=== PATIENT | male | born 1955 | race African-American/Black ===

== ENCOUNTER → 2017-07-17 09:52 | Outpatient (CLI) | payer OTHER, SELFPAY ==
[2017-07-17 10:58] LABS: Amphetamine Urine VISTA NEGATIVE (<1000 ng/mL); Barbiturate Urine VISTA NEGATIVE (< 200 ng/mL); Benzodiazepine Urine VISTA NEGATIVE (< 200 ng/mL); Cocaine Urine VISTA NEGATIVE (< 300 ng/mL); Ecstacy Urine VISTA NEGATIVE (< 500 ng/mL); Methadone Urine VISTA NEGATIVE (< 300 ng/mL); PCP Urine VISTA NEGATIVE (< 25 ng/mL); THC Urine VISTA NEGATIVE (< 50 ng/mL); Vista UDS pH Range 6
== END ==
PROVIDERS: Family Provider Family Medicine; PCP Family Medicine; Visit Provider Anesthesiology Pain Medicine
DX: F11.20 Opioid dependence, uncomplicated (principal)
CPT/HCPCS: 80307

== ENCOUNTER 2017-09-09 10:00 | Outpatient (RCR) | payer OTHER, SELFPAY ==
--- NOTE | 2017-05-02 12:12 | HP.PTEVAL_ITS ---
Patient's Visit Information SHENG SHAFFER SR is a 61 year old M referred to Physical Therapy by PEDRO REYEZ with a diagnosis of LUMBAR RADICULAOPATHY , LUMBAROSACRAL RADICULOPATHY. Date of Evaluation: 05/02/17 Physical Therapist: Jakob Silva, PT, - Visit Plan Frequency: 2x /Week Duration: 6 Weeks Plan: LE FLEXABLITY ,DLS, PRE'S LE ,POSTURAL EX'S,CONDITIONING. BRACE ON ALL TIMES EXEPT SUPINE,NO BENDING/TWSITING/LIFTING - Subjective Subjective: This 61 y/o male presents to physical therapy lumbar radiculopathy for several years . Patient underwent s/p L4-5,L5--S1 fusion with rods and srews done DR Stern at [facility] Mar 20 then Mar 23 with Home PT ,BRACE LUMBAR and cane.Patient remove brace laying down biut on when moving around. No twisting/bending/lifting. Seen Dr Recently recommended PT. Prior surgery PT didnt help ,pain eipdural injection. Then MRI showed stenosis.Location inscion ,L-S regionand bilateral legs burning. Symptoms worse with walking,standing ,siting 5 min .Symptoms better with rest and MEDS. Pain affects sleeping and the morning. Bowel/bladder good. Patient pain quality of life and unable to RTW. Denies parathesia/tingling. SOCIAL: single. VOCATION: [employer] - Pain Bilateral Back Pain Intensity (Out of 10): 9 Pain Intensity Range: 10 Bilateral Lower Extremity Pain Intensity (Out of 10): 9 Pain Intensity Range: 10 - Objective POSTURE: mild foward posture ,brace on lumbar. GAIT: mild foward posture reciprocal patteen antalgic gait slow minerva with cane. PALAPTION: mild tender paraspinals,. INSCION: well approximate incsion. NEURO: denies parathesia/tingle,reflexes L3-4,L5-S1 1/3. MMT: quads 3+5 /hams 4-/5 ,hip 3/5, ankle 4-/5 ,GT ext 4-/5. LUMBAR ROM: flexion mod/severe,extension mod/severe , side glides mod loss. FLEXABILITY: hams mod tight. SYMMTRIES : assymtical - Special Tests L/S Slump test left side: Negative L/S Slump test right side: Negative L/S Left Straight Leg Raise: Positive L/S Right Straight Leg Raise: Positive - Goals Goal 1:: Independant with HEP. Goal Time Frame: 4-6 Weeks Goal 2:: Patient to be Independant with posture for ADL'S Goal Time Frame: 4-6 Weeks Goal 3:: Patient decrease lumbar and leg pain by 50% or greater to improve function with walking and standing. Goal Time Frame: 4-6 Weeks Goal 4:: Patient be able to ambulate with quality of gait 80% of the tme community distances. Goal Time Frame: 4-6 Weeks Goal 5:: Patient to improve stength quads/hams 4/5 ,hip 3+/5 to improve function with walking and standing Goal Time Frame: 4-6 Weeks Goal 6:: Patient to improve ADLS' and housework tasks with min limitaions wity walkking and standing Goal Time Frame: 4-6 Weeks - Rehabilitation Potential Physical Therapy Diagnosis: This patient underwent s/p lumbar fusion with derease gait, strength ,edurance,function and pain ,decrease lumbar ROM impairs with walking and standing thus benifit from skilled PT Rehabilitation Potential: Good - Anticipated Interventions Patient/Client Instruction: Educate patient on: Condition, Plan of Care For the Purpose of:: To decrease pain, To increase ROM, To improve muscle performance and motor function, To improve ability to perform ADL's, To increase tolerance to activity/condition/position, To improve ability of physical actions for home/community/work/leisure, To improve gait and locomotor functions, To improve health of tissue, To decrease soft tissue restriction, To increase flexibility/ROM, To improve endurance, To improve balance, To improve safety with gait, To improve ability to perform tasks related to life management Therapeutic Exercise to Include: Strength training, Body mechanics, Postural training, Flexibilty training, Dynamic Lumbar Stabilization Comment: BLE For the Purpose of:: To decrease pain, To increase ROM, To improve muscle performance and motor function, To increase tolerance to activity/condition/ position, To improve performance and independence with ADL's, To improve gait and locomotor functions, To improve health of tissue, To decrease soft tissue restriction, To increase flexibility/ROM, To improve endurance, To improve balance, To prevent re-injury, To improve ability to perform tasks related to life management TENS: Yes IF ES: Yes Cryotherapy (ice pack, ice massage): Yes Thermo therapy (hot pack): Yes For the Purpose of:: To decrease pain, To increase ROM, To improve nutrient delivery to tissue, To increase oxygenation perfusion, To improve health of tissue, To decrease soft tissue restriction Thank you for the opportunity to evaluate your patient. For Medicare and Medicare HMO plans, please review the plan of care and approve it. It will need to be FAXED BACK to us at [phone] for Medicare purposes. Please let me know if there are questions or concerns regarding this plan of care. Physician Signature: Date:
--- NOTE | 2017-10-25 15:30 | HP.PTDCNRP_ITS ---
HP - Discharge Summary (1) - Patient Information SHENG SHAFFER SR was seen in my office for initial evaluation on 05/02/17. The following Plan of Care was established for this patient: Initial Frequency: 2x /Week Initial Duration: 6 Weeks - Anticipated Interventions Patient/Client Instruction: Educate patient on: Condition, Plan of Care For the Purpose of:: To decrease pain, To increase ROM, To improve muscle performance and motor function, To improve ability to perform ADL's, To increase tolerance to activity/condition/position, To improve ability of physical actions for home/community/work/leisure, To improve gait and locomotor functions, To improve health of tissue, To decrease soft tissue restriction, To increase flexibility/ROM, To improve endurance, To improve balance, To improve safety with gait, To improve ability to perform tasks related to life management Therapeutic Exercise to Include: Strength training, Body mechanics, Postural training, Flexibilty training, Dynamic Lumbar Stabilization For the Purpose of:: To decrease pain, To increase ROM, To improve muscle performance and motor function, To increase tolerance to activity/condition/ position, To improve performance and independence with ADL's, To improve gait and locomotor functions, To improve health of tissue, To decrease soft tissue restriction, To increase flexibility/ROM, To improve endurance, To improve balance, To prevent re-injury, To improve ability to perform tasks related to life management TENS: Yes IF ES: Yes Cryotherapy (ice pack, ice massage): Yes Thermo therapy (hot pack): Yes For the Purpose of:: To decrease pain, To increase ROM, To improve nutrient delivery to tissue, To increase oxygenation perfusion, To improve health of tissue, To decrease soft tissue restriction This patient was last seen in our office 09/09/17. Pertinent comments regarding their Physical therapy will appear below: This patient seen for PT 26 VISITS following Lumbar surgery . Patient had PT for DLS,postural ex's,LE flexablity ,modalities PRN . Patient continue to have back and leg pain ,thus underwent MRI. Thus is d/c to MD. At this point I will be discontinuing this patient from physical therapy. I would be happy to see this patient again in the future if found appropriate by the physician. Thank you! Jakob Silva, PT,
== END 2017-09-09 19:00 | disposition home or self-care (01) ==
LOC: PT 10:00
PROVIDERS: Family Provider Family Medicine; PCP Family Medicine
DX: M54.16 Radiculopathy, lumbar region (principal); M54.17 Radiculopathy, lumbosacral region
CPT/HCPCS: 97014; 97110; 97162; 97530; G0283

== ENCOUNTER → 2017-10-19 07:56 | Outpatient (CLI) | payer OTHER, MEDICAID, SELFPAY ==
--- NOTE | 2017-10-19 08:04 | MRI_ITS ---
STUDY: MRI LUMBAR SPINE WITHOUT CONTRAST REASON FOR EXAM: Male, 61 years old. Neck pain TECHNIQUE: Standardized fat and water weighted pulse sequences were obtained in the sagittal and axial planes. COMPARISON: February 05, 2017 MRI lumbar spine FINDINGS: Mild grade 1 anterolisthesis of L4 on L5. Mild retrolisthesis of L5 on S1. L4-S1 bilateral posterior fixation with prior laminectomies. Straightening of the upper lumbar lordotic curvature. Visualized spinal cord demonstrates no evidence for cord edema. Conus terminates at approximately L1 level. Cauda equina nerve roots follow spinal curvature with slight contour deformities. Developmental narrowing of the central canal is seen. Minimal anterior wedging of the lumbar vertebra. Loss of disc height and disc desiccation at L4-L5 and L5-S1 levels with endplate degenerative changes. Anterior and posterior osteophytic spurring. Level by level segmental analysis: L1-L2 level: Bilateral facet hypertrophy ligamentum flavum thickening and broad-based disc bulge with mild bilateral neural foraminal narrowing without significant central canal stenosis. L2-L3 level: Mild facet hypertrophy ligamentum flavum thickening and broad-based disc bulge resulting in moderate bilateral neural foraminal narrowing and mild central canal stenosis. L4-L5 level: Bilateral facet hypertrophy ligamentum flavum thickening and broad-based disc bulge with marginal osteophytes resulting in severe bilateral neural foraminal narrowing and moderate central canal stenosis. L5-S1 level: Bilateral facet hypertrophy and grade 1 anterolisthesis of L4 on L5 with marginal osteophytes resulting in moderate bilateral neural foraminal narrowing with narrowing of the lateral recesses. Prior laminectomies seen L5-S1 level: Bilateral facet hypertrophy with broad-based disc bulge and marginal osteophytes resulting in [id number] bilateral neural foraminal narrowing without significant central canal stenosis. Postsurgical changes in the laminectomy bed No paraspinous soft tissue mass or fluid collections. IMPRESSION: Status post L4-S1 bilateral posterior fixation with prior laminectomies and spondylotic changes with moderate central canal stenosis or L3-L4 level. Please see above level by level complete analysis for multilevel neural foraminal narrowing. Mild grade 1 anterolisthesis of L4 on L5 noted. Electronically Signed: Abdulkadir Navarro, at 11:03 EDT Tel , Service support , MRI/Spine Lumbar (Routine)
== END ==
PROVIDERS: Family Provider Family Medicine; PCP Family Medicine; Visit Provider Anesthesiology Pain Medicine
DX: M54.9 Dorsalgia, unspecified (principal)
CPT/HCPCS: 72148

== ENCOUNTER → 2018-01-13 09:52 | Outpatient (CLI) | payer OTHER, MEDICAID, SELFPAY ==
[2018-01-13 11:49] LABS: Amphetamine Urine VISTA NEGATIVE (<1000 ng/mL); Barbiturate Urine VISTA NEGATIVE (< 200 ng/mL); Benzodiazepine Urine VISTA NEGATIVE (< 200 ng/mL); Cocaine Urine VISTA NEGATIVE (< 300 ng/mL); Ecstacy Urine VISTA NEGATIVE (< 500 ng/mL); Methadone Urine VISTA NEGATIVE (< 300 ng/mL); PCP Urine VISTA NEGATIVE (< 25 ng/mL); THC Urine VISTA NEGATIVE (< 50 ng/mL); Vista UDS pH Range 6
== END ==
PROVIDERS: Family Provider Family Medicine; PCP Family Medicine; Referring Provider Anesthesiology Pain Medicine; Visit Provider Anesthesiology Pain Medicine
DX: F11.20 Opioid dependence, uncomplicated (principal)
CPT/HCPCS: 80307